=== PATIENT | male | born 1955 | race Caucasian/White ===

== ENCOUNTER 2016-05-26 19:41 | Inpatient (IN) | payer MEDICARE ==
--- NOTE | ~2016-05-26 | CR2 ---
[facility] A Service of [facility] & [facility] RADIOLOGY TEXT RESULTS PATIENT: FLOWER ESCOBEDO LOCATION: [facility] 213-01 : 59 UNIT #: [id number] AGE: [address]: Tracy Chandra MD SEX: M ORDER DR: [id number] [facility] [address] [facility]. [place], [place] [address] [id number] MR#: [id number] #: [id number] NAME: FLOWER ESCOBEDO : 1955 SEX: M STUDY DATE/TIME: 05/26/2016 21:58 UNIT: CEDOF ROOM: 74137 STUDY DESCRIPTION: CR Abdomen Acute Series Attending Physician: Olivia Phillip M.D. Ordering Physician: Olivia Phillip M.D. Primary Care Physician: Primary Care Physician No MEDICAL IMAGING REPORT This report is preliminary unless electronic signature is present EXAM Acute abdominal series. Date 05/2016 21:58 HISTORY Low stomach pain and vomiting for 3 days. COMPARISON None. FINDINGS Clear lungs. Normal heart size. No pleural effusion. Surgical changes at the esophagogastric junction. Mild amount of air within the colon particularly the transverse segment. No abnormal small bowel dilation is seen. No free air or pneumatosis is noted. IMPRESSION No acute findings in the chest or abdomen. Dictated by... Maribell Dao M.D. THIS IS AN ELECTRONICALLY VERIFIED REPORT Maribell Dao M.D. at 05/30/2016 2:05 PM FERNANDO/miguel ángel TD: 05/27/2016 06:11 JOB #: [id number] MEDICAL IMAGING REPORT COPY
--- NOTE | ~2016-05-26 | HP ---
Unit #: [id number] #: [id number] Patient: FLOWER ESCOBEDO [id number] [address] [place], [place] [address] [id number] MR#: [id number] NAME: FLOWER ESCOBEDO ROOM: Age: 61 Sex: M Admission Date: 05/26/2016 : 1955 Attending Physician: Cruzito Handy M.D. Primary Care Physician: Primary Care Physician No HISTORY AND PHYSICAL CHIEF COMPLAINT Intractable nausea and vomiting with hypovolemic hyponatremia. HISTORY OF PRESENT ILLNESS This pleasant 61-year-old male with a previous traumatic brain injury resulting in a seizure disorder, also history of hypertension, peptic ulcer disease who has been noncompliant with medicines, presents with nausea, vomiting and hyponatremia. The patient was in his usual state of health until three days prior to admission when he developed intractable nonbloody nausea, vomiting with vague generalized abdominal tenderness and headache. He has had very little p.o. intake over the past two days although has been taking in some water. Denies fevers, sweats, or chills although family states that he was somewhat chilled. No diarrhea with the above. Perhaps there was an ill family member with brief similar symptoms. In any event, he was brought to this emergency department where he is hypertensive to 150/113, labs are notable for mild dehydration and hyponatremia with a sodium of 120. The patient was noted to have a sodium of 135 in 2010 and 127 in 2013. He does drink beer but not on a daily basis, states that he drinks a six-pack a week of beer. His abdominal examination is completely benign at present. In the ER, he was treated with IV Pepcid, given 4 mg of IV morphine, 4 mg of Zofran and a liter of saline. PAST MEDICAL HISTORY 1. Traumatic brain injury with what sounds to be a traumatic subdural hematoma which did not require surgery. Patient has resultant seizure disorder but has not taken his Keppra for about two months. 2. 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 3. Remote history of peptic ulcer disease requiring extensive surgery. 4. History of hypertension. 5. B12 deficiency. ALLERGIES No known drug allergies. HOME MEDICATIONS Patient is prescribed an unknown blood pressure medicine which he has not taken for some time, Keppra 1000 mg b.i.d. and B12 tablets which again, he has not taken these medicines either for some time. SOCIAL HISTORY The patient lives with his daughter, Sam, whose phone number is Unit #: [id number] #: [id number] Patient: FLOWER ESCOBEDO . Remote history of tobacco use, he stopped smoking around age 32. Drinks about a six-pack of beer on a weekly basis. FAMILY HISTORY Negative for GI disease. REVIEW OF SYSTEMS Notable for nausea and vomiting and generalized abdominal discomfort, seizures, traumatic brain injury, CVA, peptic ulcer disease, hypertension, B12 deficiency, abdominal surgery. All other systems were reviewed and are otherwise negative. PHYSICAL EXAMINATION VITAL SIGNS: Temperature 98, pulse 95, respirations 16, blood pressure 150/113, O2 saturation 100% on room air. GENERAL: Pleasant, thin 61-year-old male who currently is in no acute distress. HEENT: Eyes PERRLA. Extraocular muscles are intact. Pharynx benign. NECK: Supple without adenopathy or thyromegaly. CHEST: Clear. HEART: Normal S1, S2 without S3, S4 or murmur. ABDOMEN: Bowel sounds are present. Well-healed midline scar noted. Nontender. No hepatosplenomegaly or masses. EXTREMITIES: Without clubbing, cyanosis, or edema. Pedal pulses are present. NEUROLOGIC: Awake, alert, oriented. Cranial nerves are intact. Equal strength throughout. DIAGNOSTIC STUDIES LABORATORY: Hematocrit 45.1, white blood count 11, normal platelet count. SMA-12 sodium 120, chloride 88, CO2 is 20, normal lipase and amylase. ASSESSMENT 1. Likely hypovolemic hyponatremia although patient has been mildly hyponatremic in the past too so this may be a mixed picture. 2. Intractable nausea and vomiting with benign abdomen. 3. History of traumatic brain injury (likely traumatic subdural hematoma) with history of seizures. 4. History of hypertension. 5. Noncompliance with medicines. 6. Prior surgery for peptic ulcer disease. 7. Prior cerebrovascular accident. PLAN 1. Gentle normal saline, check urine sodium and thyroid function tests. 2. Zofran and Pepcid. 3. Check acute abdominal series and EKG. 4. If symptoms do not improve, would consider gallbladder ultrasound versus CT scan. 5. Restart Keppra but at a lower dose, this patient has not taken this medicine for some time. 6. Initiate antihypertensive medications. 7. SCDs for DVT prophylaxis. Unit #: [id number] #: [id number] Patient: FLOWER ESCOBEDO Dictated by Olivia Phillip M.D. AML/cs TD: 05/26/2016 21:54 JOB #: [id number] HISTORY AND PHYSICAL X Olivia Phillip MD X HISTORY AND PHYSICAL
--- NOTE | ~2016-05-26 | CR72 ---
[facility] A Service of [facility] & [facility] RADIOLOGY TEXT RESULTS PATIENT: FLOWER ESCOBEDO LOCATION: A : [birth year] UNIT #: [id number] AGE: [address]: Tracy Chandra MD SEX: M ORDER DR: [id number] [facility] [address] [facility]. [place], [place] [address] [id number] MR#: [id number] Acc #: [id number] NAME: FLOWER ESCOBEDO : 1955 SEX: M STUDY DATE/TIME: 05/28/2016 21:11 UNIT: [facility] ROOM: [facility] STUDY DESCRIPTION: CR Chest Single View Portable Attending Physician: Tracy Chandra M.D. Ordering Physician: Tracy Chandra M.D. Primary Care Physician: No Primary Care Physician MEDICAL IMAGING REPORT This report is preliminary unless electronic signature is present EXAM Portable chest HISTORY Hyponatremia. Weakness for 5 days. FINDINGS The cardiac size and pulmonary vascularity are normal. No infiltrates or effusions. Surgical clips at the EG junction. IMPRESSION Negative. Dictated by... Imer Stanley M.D. THIS IS AN ELECTRONICALLY VERIFIED REPORT Imer Stanley M.D. at 05/29/2016 1:58 PM DFRosas/stefany TD: 05/29/2016 13:35 JOB #: [id number] MEDICAL IMAGING REPORT COPY
--- NOTE | ~2016-05-26 | EKG ---
PATIENT: FLOWER ESCOBEDO UNIT #: [id number] Ventricular Rate: 69 BPM Atrial Rate: 69 BPM P-R Interval: 136 ms QRS Duration: 88 ms Q-T Interval: 378 ms QTC Calculation(Bezet): 405 ms P Gunnison: 66 degrees Calculated R Gunn[place]: 32 degrees Calculated T Gunn[place]: 38 degrees Diagnosis Line: Normal sinus rhythm Diagnosis Line: Normal ECG Diagnosis Line: When compared with ECG of 20-NOV-2013 10:56, Diagnosis Line: No significant change was found Diagnosis Line: Confirmed by ION NDIAYE MD ([id number]) on 05/27/2016 Diagnosis Line: 4:44:53 PM INTERPRETING MD: ZELDA FIGUEROA
--- NOTE | ~2016-05-26 | DS ---
Unit #: [id number] #: [id number] Patient: FLOWER ESCOBEDO [id number] [address] [address] [id number] I MR#: [id number] NAME: FLOWER ESCOBEDO ROOM: 213 Age: 61 Sex: M Admission Date: 05/26/2016 : 1955 Discharge Date: 05/29/2016 Attending Physician: Tracy Chandra M.D. Primary Care Physician: Primary Care Physician No DISCHARGE SUMMARY PRIMARY DIAGNOSIS Hyponatremia. SECONDARY DIAGNOSES 1. Hypovolemia. 2. Alcohol abuse. 3. Mild urinary retention likely representing benign prostatic hyperplasia. 4. History of traumatic brain injury. 5. Hypertension. 6. Seizure disorder. 7. Medication noncompliance. HOSPITAL COURSE The patient was placed in the hospital with hyponatremia with a sodium of 120 this improved with hydration. Overall clinically, the patient was hypovolemic at presentation. His family reports that he has been drinking much less in the last year and generally only coffee or beer. I have advised them to limit him to one cup of coffee and one beer per day and to encourage other p.o. fluids and I have recommended at least 2 cans of Pepsi or water each day. During the patient's hospitalization, he did have a postvoid bladder scan which showed 326 mL of urine in the bladder, so he was started on Flomax and he is being referred back to his primary care physician for a formal prostate exam. He did have his Mijares removed and was able to urinate prior to discharge. I instructed the family about timed urinations and double voiding. I have asked them to have him urinate every 2 hours while awake and then have a second voiding attempt 15 minutes after each primary void. The patient's sodium was 135 on the day of discharge. The patient did have prescriptions given to him for all of his medications as he has not been taking any of his regular medications including his Keppra for seizures. He has been encouraged about medication compliance and following up with his primary care physician regularly. DISCHARGE DISPOSITION To home. DISCHARGE DIET Restricted to one cup of coffee and one can of beer per day and to Unit #: [id number] #: [id number] Patient: FLOWER ESCOBEDO encourage p.o. fluids otherwise. No other dietary restrictions at this time, although consideration could be made in the future for a low sodium diet if he requires any increased blood pressure medications. DISCHARGE STATUS Stable. DISCHARGE ACTIVITY Ad abe. DISCHARGE FOLLOWUP Follow up with his PCP in 1 to 2 weeks with a sodium level and a prostate exam to be repeated at that time. DISCHARGE MEDICATIONS Flomax 0.4 mg p.o. q.h.s., Tylenol 650 mg p.o. q.4 hours p.r.n. pain, Keppra 500 mg p.o. b.i.d., Norvasc 10 mg p.o. daily, vitamin B12 1000 mcg p.o. daily, and thiamine 100 mg p.o. daily. Dictated by... Bryce Katz M.D. LIZETTE/dhruv TD: 06/01/2016 05:57 JOB #: [id number] DISCHARGE SUMMARY X Bryce aKtz MD X DISCHARGE SUMMARY
[~2016-05-26 19:41] MED LIST: MOTION SICKNESS25 M4 PO
[2016-05-26 19:47] LABS: BASOPHIL% 0.3 % (0-2.5); EOSINOPHIL% 0.1 % (0.0-7.0); HEMATOCRIT 45.1 % (38.0-50.0); HEMOGLOBIN 16.4 gm/dL (13.0-16.0); LYMPHOCYTE# 1.7 X10e3 (1.0-3.5); LYMPHOCYTE% 15.3 % (17.0-45.0); MEAN CELL VOLUME 84.4 FL (83-96); MEAN CORPUSCULAR HEMOGLOBIN 30.7 PG (28-34); MEAN CORPUSCULAR HGB CONC 36.3 g/dL (30-36); MEAN PLATELET VOLUME 7.4 FL (6.5-11.5); MONOCYTE# 1.1 X10e3 (0-1.0); MONOCYTE% 10.3 % (3.0-12.0); NEUTROPHIL# 8.1 X10e3 (1.5-7.1); PLATELET COUNT 329 X10e3 (140-420); RED BLOOD COUNT 5.35 X10e (3.90-5.60); RED CELL DISTRIBUTION WIDTH 14.4 % (11.0-15.5); WHITE BLOOD COUNT 10.9 X10e3 (4.0-10.5)
[2016-05-26 19:52] LABS: DIFF IND NO
[2016-05-26 20:44] LABS: ALBUMIN SERUM 4.6 g/dL (3.5-5.0); ALKALINE PHOSPHATASE 47 U/L (32-92); ALT (SGPT) 15 U/L (10-40); AMYLASE 10 U/L (0-46); AST (SGOT) 16 U/L (10-42); BILIRUBIN, DIRECT 0.3 mg/dL (0.0-0.2); BILIRUBIN,INDIRECT 1.3 mg/dL (0.0-0.9); BILIRUBIN,TOTAL 1.6 mg/dL (0.2-2.0); BLOOD UREA NITROGEN 23 mg/dL (9-23); BUN/CREATININE RATIO 32.85; CALCIUM SERUM 8.6 mg/dL (8.4-10.2); CARBON DIOXIDE 20 mmol/L (22-31); CHLORIDE 88 mmol/L (100-111); CREATININE SERUM 0.7 mg/dL (0.6-1.4); GLOM FILT RATE Estimated ABOVE60 mL/min (>60); GLUCOSE FASTING 83 mg/dL (70-110); LIPASE 12 U/L (22-51); POTASSIUM 4.2 mmol/L (3.5-5.1); PROTEIN TOTAL SERUM 6.8 g/dL (6.0-8.3)
[2016-05-26 20:45] LABS: SODIUM 120 mmol/L (135-145)
[2016-05-27 07:11] LABS: BASOPHIL% 0.6 % (0-2.5); EOSINOPHIL# 0.1 X10e3 (0-0.7); EOSINOPHIL% 1.4 % (0.0-7.0); HEMATOCRIT 39.5 % (38.0-50.0); LYMPHOCYTE# 1.9 X10e3 (1.0-3.5); LYMPHOCYTE% 27.4 % (17.0-45.0); MEAN CELL VOLUME 86.2 FL (83-96); MEAN CORPUSCULAR HEMOGLOBIN 29.8 PG (28-34); MEAN CORPUSCULAR HGB CONC 34.6 g/dL (30-36); MEAN PLATELET VOLUME 6.8 FL (6.5-11.5); MONOCYTE# 1.3 X10e3 (0-1.0); MONOCYTE% 17.9 % (3.0-12.0); NEUTROPHIL# 3.7 X10e3 (1.5-7.1); NEUTROPHIL% 52.7 % (40-75); PLATELET COUNT 228 X10e3 (140-420); RED BLOOD COUNT 4.59 X10e (3.90-5.60); RED CELL DISTRIBUTION WIDTH 13.9 % (11.0-15.5)
[2016-05-27 07:12] LABS: DIFF IND NO; HEMOGLOBIN 13.7 gm/dL (13.0-16.0)
[2016-05-27 08:19] LABS: THYROID STIMULATING HORMONE 1.77 uIU/ml (0.34-5.60)
[2016-05-27 08:27] LABS: FREE THYROXIN (T4) 1.27 ng/dL (0.58-1.64)
[2016-05-27 09:09] LABS: BLOOD UREA NITROGEN 16 mg/dL (9-23); BUN/CREATININE RATIO 22.85; CALCIUM SERUM 8.6 mg/dL (8.4-10.2); CARBON DIOXIDE 20 mmol/L (22-31); CHLORIDE 91 mmol/L (100-111); CREATININE SERUM 0.7 mg/dL (0.6-1.4); GLOM FILT RATE Estimated ABOVE60 mL/min (>60); GLUCOSE FASTING 122 mg/dL (70-110)
[2016-05-27 09:11] LABS: SODIUM 122 mmol/L (135-145)
[2016-05-27 15:31] LABS: URINE SOURCE CLEAN CATCH
[2016-05-27 15:45] LABS: URINE APPEARANCE CLEAR; URINE BILIRUBIN NEG (NEG); URINE BLOOD NEG (NEG); URINE COLOR DK YELLOW; URINE GLUCOSE 100 MG/DL (NEG); URINE KETONE 1+ (NEG); URINE LEUKOCYTE ESTERASE NEG (NEG); URINE NITRATE NEG (NEG); URINE PH 5.5 (5-8); URINE PROTEIN NEG (NEG); URINE SPECIFIC GRAVITY 1.025 (1.003-1.035)
[2016-05-28 06:52] LABS: BLOOD UREA NITROGEN 10 mg/dL (9-23); BUN/CREATININE RATIO 16.66; CALCIUM SERUM 8.5 mg/dL (8.4-10.2); CARBON DIOXIDE 24 mmol/L (22-31); CHLORIDE 100 mmol/L (100-111); CREATININE SERUM 0.6 mg/dL (0.6-1.4); GLOM FILT RATE Estimated ABOVE60 mL/min (>60); GLUCOSE FASTING 122 mg/dL (70-110); POTASSIUM 3.9 mmol/L (3.5-5.1); SODIUM 129 mmol/L (135-145)
[2016-05-28 18:57] LABS: BLOOD UREA NITROGEN 9 mg/dL (9-23); CARBON DIOXIDE 24 mmol/L (22-31); CHLORIDE 98 mmol/L (100-111); CREATININE SERUM 0.6 mg/dL (0.6-1.4); GLOM FILT RATE Estimated ABOVE60 mL/min (>60); GLUCOSE FASTING 121 mg/dL (70-110); POTASSIUM 3.4 mmol/L (3.5-5.1)
[2016-05-28 19:05] LABS: SODIUM 124 mmol/L (135-145)
[2016-05-28 22:50] LABS: BLOOD UREA NITROGEN 10 mg/dL (9-23); BUN/CREATININE RATIO 16.66; CALCIUM SERUM 8.2 mg/dL (8.4-10.2); CARBON DIOXIDE 26 mmol/L (22-31); CHLORIDE 99 mmol/L (100-111); CREATININE SERUM 0.6 mg/dL (0.6-1.4); GLOM FILT RATE Estimated ABOVE60 mL/min (>60); GLUCOSE FASTING 107 mg/dL (70-110); POTASSIUM 3.8 mmol/L (3.5-5.1); SODIUM 131 mmol/L (135-145)
[2016-05-29 07:55] LABS: BLOOD UREA NITROGEN 8 mg/dL (9-23); BUN/CREATININE RATIO 13.33; CALCIUM SERUM 8.6 mg/dL (8.4-10.2); CARBON DIOXIDE 28 mmol/L (22-31); CHLORIDE 101 mmol/L (100-111); CREATININE SERUM 0.6 mg/dL (0.6-1.4); GLOM FILT RATE Estimated ABOVE60 mL/min (>60); GLUCOSE FASTING 105 mg/dL (70-110); POTASSIUM 3.8 mmol/L (3.5-5.1); SODIUM 135 mmol/L (135-145)
[2016-05-29] MEDS ORDERED: FLOMAX0.4 M1 PO (13:48)
[2016-05-29] MEDS ORDERED: NORVASC10 MG PO (13:48)
[2016-05-29] MEDS ORDERED: KEPPRA500 M2 PO (13:48)
[2016-05-29] MEDS ORDERED: B-1100 MG PO (13:49)
[2016-05-29] MEDS ORDERED: B-121000 MC1 PO (13:49)
== END 2016-05-29 17:31 | disposition home or self-care (01) | DRG 641 ==
LOC: CED 19:41 → CEDOF 21:40 → C2A 05-27 07:22
PROVIDERS: Emergency Medicine; Internal Medicine
DX: E87.1 Hypo-osmolality and hyponatremia (principal); E86.0 Dehydration; I69.351 Hemiplegia and hemiparesis following cerebral infarction affecting right dominant side; I10 Essential (primary) hypertension; F10.10 Alcohol abuse, uncomplicated; N40.1 Benign prostatic hyperplasia with lower urinary tract symptoms; R33.8 Other retention of urine; Z87.820 Personal history of traumatic brain injury; G40.909 Epilepsy, unspecified, not intractable, without status epilepticus; Z91.14 Patient's other noncompliance with medication regimen; Z87.11 Personal history of peptic ulcer disease; E53.8 Deficiency of other specified B group vitamins; Z87.891 Personal history of nicotine dependence
CPT/HCPCS: 36415; 71010; 74022; 80048; 80076; 81003; 82150; 83690; 83935; 84300; 84439; 84443; 85025; 87086; 93005; 96361; 96374; 96375; 97110; 97116; 97163; 97166; 99285; G8978-GP; G8979-GP; G8987-GO; G8988-GO; G8989-GO; J1953; J2270; J2405